=== PATIENT | male | born 1995 | race Caucasian/White ===

== ENCOUNTER 2018-02-08 20:55 | Emergency (ER) | payer BC ==
[2018-02-08 21:12] VITALS: O2SAT 99
[2018-02-08 21:22] VITALS: RESP 20
[2018-02-08] MEDS ORDERED: KETOROLAC TROMETHAMINE 30 MG/ML SOL IM ONE (21:27)
[2018-02-08] MEDS ORDERED: KETOROLAC TROMETHAMINE 30 MG/ML SOL ONE (21:29)
[2018-02-08 21:54] VITALS: BP 118/64; PULSE 94; TEMP 98
== END 2018-02-08 21:52 | disposition home or self-care (01) ==
LOC: ED 20:55
DX: S06.0X9A Concussion with loss of consciousness of unspecified duration, initial encounter (principal); R40.2362 Coma scale, best motor response, obeys commands, at arrival to emergency department; R40.2142 Coma scale, eyes open, spontaneous, at arrival to emergency department; R40.2252 Coma scale, best verbal response, oriented, at arrival to emergency department; V48.0XXA Car driver injured in noncollision transport accident in nontraffic accident, initial encounter; S49.91XA Unspecified injury of right shoulder and upper arm, initial encounter
CPT/HCPCS: 73030; 96372; 99283; 99284; J1885